=== PATIENT | male | born 1990 | race Caucasian/White ===

== ENCOUNTER 2023-06-11 12:15 | Emergency (ER) | payer SELFPAY ==
--- OUTSIDE RECORDS SUMMARY | 2023-06-11 12:18 | XMS REPORT | Continuity of Care Document ---
:1990 Author Organization [facility] t Address [address] [facility] [address] [place] [address] Care Team Providers Name Role Phone FRANCISCA TUBBS Primary Care Physician Unavailable Amanda Matta Attending Clinician AMANDA JETT Attending Clinician Unavailable Doctor Unassigned, [place] Attending Clinician Unavailable Stephanie Lowe MD Attending Clinician RICH GARZA Attending Clinician Unavailable STEPHANIE LOWE Attending Clinician Unavailable LORY LEGER Attending Clinician Unavailable SESAR HAYNES Attending Clinician Unavailable , Adc Surg Spec Procedure Attending Clinician Unavailable Francisca Gtz Attending Clinician FRANCISCA TUBBS Attending Clinician Unavailable Sesar Haynes MD Attending Clinician [phone] Lab, Dain Cbc Attending Clinician Unavailable Jaquelin Moreno Attending Clinician JAQUELIN OLEARY Attending Clinician Unavailable Arden Chavez MD Attending Clinician ARDEN CHAVEZ Attending Clinician Unavailable Jolene Dodd Attending Clinician JOLENE SIDDIQI Attending Clinician Unavailable Greg Mason Attending Clinician GREG LUONG Attending Clinician Unavailable Liam Mattson MD Attending Clinician LIAM MATTSON Attending Clinician Unavailable JULIO C CALDERON Attending Clinician Unavailable Domenic Land Attending Clinician Unavailable LIAM MATTSON Admitting Clinician Unavailable JULIO C CALDERON Admitting Clinician Unavailable Payers Payer Name Policy Type Policy Number Effective Date Expiration Date Piotr HENNING BCCURRY BLUE [id number] 2020 ADVANTAGE O 00:00:00 Problems Condition Condition Condition Status Onset Resolution Last Treating Co mments Source Name Details Category Date Date Treatment Clinician Date Injury by Injury by Disease Active Uni vers nail, nail, 5-17 ity of initial initial 00:00: [place] encounter encounter 00 Medi tammy Branch Left foot Left foot Disease Active Uni vers pain pain 5-17 ity of 00:00: [place] 00 Medical Branch Allergies, Adverse Reactions, Alerts Allergy Allergy Status Severity Reaction(s) Onset Inactive Treating Comm ents Source Name Type Date Date Clinician No Known DA Active [facility] 05[facility]30 [facility] NO KNOWN Drug Active Univers ALLERGIE Class ity of S [facility] Social History Social Habit Start Date Stop Date Quantity Comments Source History [facility] University o f Alcohol Frequency [facility] Branch History [facility] University o f Alcohol Std Drinks [facility] History [facility] University o f Alcohol Binge [facility] Branch Exposure to 2022-03-31 2022-04-10 Not sure University SARS-CoV-2 (event) 00:00:00 09:19:00 [facility] Alcohol intake 2022-04-10 2022-04-10 Current drinker Unive rsity of 00:00:00 00:00:00 of alcohol [facility] [place] (finding) Branch Cigarettes smoked 2021-08-23 2021-08-23 Univers ity of current (pack per 00:00:00 00:00:00 [facility]) - Reported Branch Tobacco use and 2021-08-23 2021-08-23 Never used Universit y of exposure 00:00:00 00:00:00 [facility] Cigarette 2021-08-23 2021-08-23 University of pack-years 00:00:00 00:00:00 [facility] History of tobacco 2021-08-02 Cigarette Smoker University of use 00:00:00 [facility] Alcohol Comment 2018-04-07 2018-04-07 social Universit y of 00:00:00 00:00:00 [facility] Sex [birth year] At [birth year] Universit y of 00:00:00 00:00:00 [facility] Smoking Status Start Date Stop Date Source Former smoker 2021-08-23 00:00:00 2021-08-23 [facility] Medications Ordered Filled Start Stop Current Ordering Indication Dosage Frequency Signature Comments Components Source Medication Medication Date Date Medication? Clinician (SIG) Name Name ibuprofen 2021- No [id number] 600mg Take 1 Univers 600 mg 04-10 9107 tablet by ity of tablet 00:00: 04:59 mouth [place] 00 :00 every 6 Medical (six) Branch hours as needed for Temp > 38.5 C for up to 14 days. ibuprofen 2021- No [id number] 600mg Take 1 Univers 600 mg 04-10 9107 tablet by ity of tablet 00:00: 04:59 mouth [place] 00 :00 every 6 Medical (six) Branch hours as needed for Temp > 38.5 C for up to 14 days. benzonatate Yes [id number] 100mg Take 1 Univers (TESSALON 9- 07 capsule by ity of PERLES) 100 00:00: mouth 3 Dain as mg capsule 00 (three) Medica l times Branch daily as needed for Cough. benzonatate Yes [id number] 100mg Take 1 Univers (TESSALON 9-29 07 capsule by ity of PERLES) 100 00:00: mouth 3 Dain as mg capsule 00 (three) Medica l times Branch daily as needed for Cough. Immunizations Ordered Filled Immunization Date Status Comments Sourc e Immunization Name Name TDAP 2020-10-07 Completed University 00:00:00 [facility] TDAP 2020-10-07 Completed University 00:00:00 [facility] Vital Signs Vital Name Observation Time Observation Value Comments Source Systolic blood 2022-04-10 14:36:00 123 mm[Hg] Univer sity of pressure [facility] Diastolic blood 2022-04-10 14:36:00 78 mm[Hg] Unive rsity of pressure [facility] Heart rate 2022-04-10 14:36:00 84 /min [facility] Body temperature 2022-04-10 14:36:00 36.39 Michaela Univ ersity [facility] Body height 2022-04-10 14:36:[address] [facility] Body weight 2022-04-10 14:36:[address] [facility] BMI 2022-04-10 14:36:00 23.73 kg/m2 [facility] Oxygen saturation in 2022-04-10 14:36:00 98 /min [facility] Arterial blood by [facility] Pulse oximetry Branch Procedures This patient has no known procedures. Encounters Start End Encounter Admission Attending Care Care Encounter Source Date/Time Date/Time Type Type Clinicians Facility Department ID 2022-08-23 Outpatient CHW CHW [id number] [facility] 13:19:32 21 [facility] 2022-04-10 2022-04-10 Office Janett [facility] 1.2.840.114 [id number] Univers 09:00:00 09:54:24 Visit Amanad OSBORN 350.1.13.10 it y of [place] 4.2.7.2.686 Dain as DAVID?BLEA [phone] [address] MEDICAL OFFICE BUILDING 2022-04-10 2022-04-10 Outpatient Jenny JETT [facility] [id number] Univers 09:00:00 09:54:24 AMANDA proctor [facility] 2022-04-10 2022-04-10 Outpatient Jenny JETT [facility] [id number] Univers 00:00:00 00:00:00 AMANDA proctor [facility] 2022-04-10 2022-04-10 Orders Doctor MALHOTRA 1.2.840.114 [id number] Univers 00:00:00 00:00:00 Only Unassigned, MAITE 350.1.13.10 ity of [place] [facility] 4.2.7.2.686 Dain as [phone] [address] 2022-04-09 2022-04-09 Letter JanettRUST 1.2.840.114 [id number] Univers 00:00:00 00:00:00 (Out) Amanda HEALTH 350.1.13.10 it y of [place] 4.2.7.2.686 Dain as DAVID?BLEA [phone] Id dical [address] MEDICAL OFFICE BUILDING 2021-12-15 2021-12-15 Orders Doctor ROSCOE 1.2.840.114 [id number] Univers 00:00:00 00:00:00 Only Unassigned, [place]ITE 350.1.13.10 ity of [place] [facility] 4.2.7.2.686 Dain as [id number] [address] 2021-12-12 2021-12-12 Telephone [facility] 1.2.840.114 [id number] Univers 00:00:00 00:00:00 [facility] 350.1.13.10 [place] PROF[place] [phone] [facility] 204 [facility] 2021-12-07 2021-12-07 Patient [facility] 1.2.840.114 [id number] Univers 00:00:00 00:00:00 Secure Msg Stephanie HEALTH 350.1.13.10 ity of [place]2.7.2.686 [place] [facility] [phone] Med ical [address] 2021-09-14 2021-09-14 Outpatient R GREG [facility] [id number] Univers 18:00:00 18:00:00 RICH ity of [facility] 2021-09-14 2021-09-14 Telephone [facility] 1.2.840.114 [id number] Univers 00:00:00 00:00:00 Stephanie [place] 350.1.13.10 i ty [place] [phone] [facility] 204 [facility] 2021-09-11 2021-09-11 [facility] [id number] Univers 11:30:00 11:30:00 STEPHANIE [facility] 2021-09-11 2021-09-11 Office MynorRUST 1.2.840.114 [id number] Univers 10:31:19 11:03:41 Visit [facility] 350.1.13.10 i ty [place] Profess[place] [phone] [address] 2021-09-11 2021-09-11 Outpatient R ARSEN [facility] [id number] Univers 09:30:00 09:30:00 LORY [facility] 2021-09-11 2021-09-11 [facility] 1.2.840.114 [id number] Univers 00:00:00 00:00:00 Secure Msg [facility] 350.1.13.10 ity [place].2.686 [place] - [phone] Med ical [address] 2021-09-08 2021-09-08 Outpatient R ISRAEL [facility] [id number] Univers 10:40:00 10:40:00 ON, [facility] 2021-09-07 2021-09-07 Office MynorRUST 1.2.840.114 [id number] Univers 09:29:28 09:54:55 Visit [facility] 350.1.13.10 i ty [place]2.[place] Profess[place] [phone] [address] 2021-09-07 2021-09-07 Out[facility] [id number] Univers 08:00:00 08:00:00 [facility] [place] [facility] 2021-09-06 2021-09-06 Telephone MynorRUST 1.2.840.114 [id number] Univers 00:00:00 00:00:00 [facility] 350.1.13.10 i [place]2.[place] [phone] [facility] 204 [facility] 2021-09-04 2021-09-04 [facility] 1.2.840.114 [id number] Univers 15:00:23 17:06:06 Visit Rm, Adc Surg Spec Procedure [place] 3 50.1.13.10 it[place]2.[place].2.[place] [id number] [address] 2021-09-04 2021-09-04 [facility] [id number] Univers 15:30:00 15:30:00 STEPHANIE ity [facility] 2021-09-04 2021-09-04 Telephone [facility] 1.2.840.114 [id number] Univers 00:00:00 00:00:00 [facility] 350.1.13.10 i ty [place]2.[place] [phone] [address] 2021-09-04 2021-09-04 Orders Doctor ROSCOE 1.2.840.114 [id number] Univers 00:00:00 00:00:00 Only Unassigned, [place] 350.1.13.10 ity of [place] [facility] 4.2.7.2.686 Dain as [phone] [address] 2021-09-04 2021-09-04 Telephone [facility] 1.2.840.114 [id number] Univers 00:00:00 00:00:00 [facility] 350.1.13.10 i ty [place]2.[place] [phone] Id dic[address] 2021-08-23 2021-08-23 Office SulyRUST 1.2.840.114 [id number] Univers 07:09:45 07:39:28 Visit Francisca Lupe [facility] 350.1.13.10 i ty of [place] 4.2.7.2.686 Dain as David?Blea [phone] [address] 2021-08-23 2021-08-23 Outpatient [facility] [id number] Univers 07:00:00 07:00:00 FRANCISCA itflorentin [facility] 2021-07-28 2021-07-28 [facility] [id number] Univers 09:00:00 09:00:00 ON, SESAR itflorentin [facility] 2021-07-27 2021-07-27 Patient [facility] 1.2.840.114 [id number] Univers 00:00:00 00:00:00 Secure Msg on, Sesar Mora HEALTH 350.1.13.10 ity [facility] 4.2.7.2.686 [facility] [phone] [facility] Primary & 365 Branch Specialty Care 2021-07-17 2021-07-17 Outpatient [facility] [id number] Univers 16:15:00 16:15:00 [facility] 2021-07-13 2021-07-13 [facility] 1.2.840.114 [id number] Univers 00:00:00 00:00:00 on, Sesar HEALTH 350.1.13.10 ity [facility] 4.2.7.2.686 [facility] [phone] [facility] Primary & 365 Branch Specialty Care 2020-12-29 2020-12-29 Outpatient R [facility] [id number] Univers 15:30:00 15:30:00 [facility] 2020-11-24 2020-11-24 Office [facility] 1.2.840.114 [id number] Univers 15:58:15 16:42:03 Visit Stephanie Malagon 350.1.13.10 i ty gigi Gil 4.2.7.2.686 [facility] [phone] [address] 2020-11-24 2020-11-24 Outpatient R [facility] [id number] Univers 16:00:00 16:00:00 [facility]IE [facility] 2020-11-24 2020-11-24 Orders Doctor MALHOTRA 1.2.840.114 [id number] Univers 00:00:00 00:00:00 Only Unassigned, [place] 350.1.13.10 ity of [place] [facility] 4.2.7.2.686 Dain as [phone] [facility] 009 Branch 2020-11-09 2020-11-09 Fraud Prevention Analyst Lab, [facility] 1.2.840.11 [id number] Univers 08:47:43 09:02:43 Visit Regina Olearye [facility] 350.1.13.1 0 ity of [place] 4.2.7.2.686 [facility] [phone] [facility] Primary & 357 Branch Specialty Care 2020-11-09 2020-11-09 Outpatient R MAMTA [facility] [id number] Univers 08:45:00 08:45:00 JAQUELIN itflorentin [facility] 2020-11-04 2020-11-04 [facility] 1.2.840.114 [id number] Univers 16:15:00 23:59:00 Encounter Arden A SPECIALTY 350.1.13.10 ity of CARE 4.2.7.2.686 [facility] s CENTER AT [phone] Id vinhlopez WHITT 809 [facility] 2020-11-04 2020-11-04 Office [facility] 1.2.840.114 [id number] Univers 15:30:35 17:04:25 Visit Arden A SPECIALTY 350.1.13.10 ity of CARE 4.2.7.2.686 [facility] s CENTER AT [phone] Id vnihlopez OCAMPOFlorentin 198 [facility] 2020-11-04 2020-11-04 Outpatient R [facility] [id number] Univers 15:30:00 15:30:00 [facility]DEN [facility] 2020-11-03 2020-11-03 Telephone MamtaRUST 1.2.840.114 [id number] Univers 00:00:00 00:00:00 Jaquelin N Moonfrye 350.1.13.10 ity of [place] 4.2.7.2.686 [facility] [phone] [facility] Primary & 204 Branch Specialty Care 2020-10-31 2020-10-31 Patient Israel [facility] 1.2.840.114 [id number] Univers 00:00:00 00:00:00 Secure Msg on, Sesar Mora HEALTH 350.1.13.10 ity of [place] 4.2.7.2.686 [facility] [phone] [facility] Primary & 231 Branch Specialty Care 2020-10-27 2020-10-27 Fraud Prevention Analyst Lab, [facility] 1.2.840.11 [id number] Univers 11:19:01 11:34:01 Visit Dillon Jolene HEALTH 350.1.13.10 ity of [place] 4.2.7.2.686 [facility] [phone] [facility] Primary & 357 Branch Specialty Care 2020-10-27 2020-10-27 Office Dillon [facility] 1.2.840.114 [id number] Univers 10:12:01 11:17:34 [facility] 350.1.13.10 it y of [place] 4.2.7.2.[address] [place] [address] [phone] [facility] Primary & 204 Branch Specialty Care 2020-10-27 2020-10-27 Outpatient Jenny SIDDIQI [facility] [id number] Univers 10:30:00 10:30:00 JOLENE ity [facility] 2020-10-27 2020-10-27 Outpatient Jenny SIDDIQI [facility] [id number] Univers 08:30:00 08:30:00 [facility] 2020-10-27 2020-10-27 Orders Doctor MALHOTRA 1.2.840.114 [id number] Univers 00:00:00 00:00:00 Only Unassigned, MAITE 350.1.13.10 ity of [place] [facility] 4.2.7.2.686 [facility] [phone] [facility] 009 Branch 2020-10-19 2020-10-19 Office Ag [facility] 1.2.840.114 [id number] Univers 15:37:21 16:07:21 Visit Greg Helm HEALTH 350.1.13.10 ity of [place] 4.2.7.[address] [place] [address] [phone] [facility] Primary & 204 Branch Specialty Care 2020-10-19 2020-10-19 Outpatient R AG [facility] [id number] Univers 16:00:00 16:00:00 GREG ity of [place] Medical Branch 2020-10-10 2020-10-10 Patient Doctor [facility] 1.2.840.114 [id number] Univers 00:00:00 00:00:00 Secure Msg Unassigned, HEALTH 350.1.13.10 ity of [place] 4.2.7.2.686 [facility] [phone] Medi tammy Primary & 231 Branch Specialty Care 2020-10-10 2020-10-10 Patient Doctor [facility] 1.2.840.114 [id number] Univers 00:00:00 00:00:00 Secure Msg Unassigned, HEALTH 350.1.13.10 ity of [place] 4.2.7.2.686 [facility] [phone] Medi tammy Primary & 231 Branch Specialty Care 2020-10-07 2020-10-07 Hospital [facility] 1.2.840.114 [id number] Univers 10:15:00 23:59:00 Encounter onSesar HEALTH 350.1.13.10 ity of [place] 4.2.7.2.686 [facility] [phone] Medi tammy Primary & 809 Branch Specialty Care 2020-10-07 2020-10-07 Fraud Prevention Analyst Lab, [facility] 1.2.840.11 [id number] Univers 10:47:02 11:02:02 Visit Sesar Haynes HEALTH 350.1.1 3.10 ity of [place] 4.2.7.[address] [place] [address] [phone] Medi tammy Primary & 357 Branch Specialty Care 2020-10-07 2020-10-07 Office [facility] 1.2.840.114 [id number] Univers 09:32:35 10:32:56 Visit oneSsar HEALTH 350.1.13.10 ity of [place] 4.2.7.2.686 [facility] [phone] Medi tammy Primary & 231 Branch Specialty Care 2020-10-07 2020-10-07 [id number] Univers 09:20:00 09:20:00 ON, SESAR proctor [facility] 2020-10-07 2020-10-07 Telephone Israel [facility] 1.2.840.114 [id number] Univers 00:00:00 00:00:00 on, Sesar Mora HEALTH 350.1.13.10 ity of [place] 4.2.7.2.686 [facility] [phone] [facility] Branch Specialty Care 2020-10-07 2020-10-07 Patient Israel [facility] 1.2.840.114 [id number] Univers 00:00:00 00:00:00 Secure Msg on, Sesar Mora HEALTH 350.1.13.10 ity of [place] 4.2.7.2.686 [facility] [phone] [facility] Branch Specialty Care 2020-10-07 2020-10-07 Patient Israel [facility] 1.2.840.114 [id number] Univers 00:00:00 00:00:00 Secure Msg on, Sesar Mora HEALTH 350.1.13.10 ity of [place] 4.2.7.2.686 [facility] [phone] [facility] Branch Specialty Care 2020-05-07 2020-05-07 Emergency Srinivasan, [facility] 1.2.840.114 [id number] Univers 06:06:03 08:24:00 [facility] 350.1.13.10 it [facility] 4.2.7.2.686 [facility] [phone] [address] ([facility]) 2020-05-07 2020-05-07 Emergency X SRINIVASAN [facility] ERT [id number] Univers 06:06:03 08:24:00 LIAM proctor [facility] 2019-10-25 2019-10-25 Emergency X KVNG [facility] ERT [id number] Univers 16:00:57 17:48:00 JULIO C proctor [facility] 2019-06-30 2019-06-30 Outpatient PEDRO Escalona CHW [id number] [facility] 16:00:00 16:00:00 [facility] 2019-04-22 2019-04-22 Outpatient PEDRO Land [id number] [facility] 16:00:00 16:00:00 [facility] s Results This patient has no known results.
--- NOTE | 2023-06-11 13:13 | RAD REPORT ---
EXAM DESCRIPTION: RAD - Foot Left 3 View - 06/11/2023 1:02 pm CLINICAL HISTORY: stepped on glass, laceration;Pain COMPARISON: <Comparisons> FINDINGS: Soft tissue swelling is seen along the plantar aspect of the foot. No fracture or dislocat ion seen. Moderate swelling is seen along the medial aspect of the interphalangeal joint. No soft tis wesley gas. No radiopaque foreign body visible. Please note that sometimes non-metal foreign bodies are not visible on x-ray.
--- NOTE | 2023-06-11 13:33 | EDPHYS ---
Physician Documentation [facility] Name: Judd Barraza Age: 32 yrs Sex: Male : 1990 Arrival Date: 06/11/2023 Time: 12:15 Bed 6 Private MD: ED Physician Will Velazquez HPI: 06/11 13:28 This 32 yrs old Male presents to ER via Ambulatory with complaints of Laceration To rn Foot, Puncture Wound To Foot. 13:28 The patient has a laceration occurred outdoors, and has glass or an other foreign body rn present. The type of wound is a puncture. The laceration(s) is(are) located on the left foot. Onset: The symptoms/episode began/occurred 3 day(s) ago. The patient has not experienced similar symptoms in the past. The patient has not recently seen a physician. Pt reports barefoot, stepped on broken glass 2-3 days ago, took glass out, doesn't feel like any foreign bodies still left, but noticed increased swelling. He superglued the wound shut. Also reports years ago stepped on nail on ball of foot, still feels swollen from that. Tetanus up to date, last shot 2 years ago.. Historical: - Allergies: 12:40 No Known Allergies; aa5 - PMHx: 12:40 Seizure; CVA; aa5 - PSHx: 12:40 open heart sx; aa5 - Social history:: Smoking status: Patient reports the use of cigarette tobacco products. - Family history:: not pertinent. - Hospitalizations: : No recent hospitalization is reported. ROS: 13:28 Constitutional: Negative for fever, chills, and weight loss, MS/Extremity: + laceration rn to left foot Exam: 13:28 Constitutional: This is a well developed, well nourished patient who is awake, alert, rn and in no acute distress. MS/ Extremity: Pulses equal, no cyanosis. Neurovascular intact. Full, normal range of motion. Equal circumference. + superficial laceration plantar surface of left mid-foot, no foreign bodies identified or focal swelling. Distal left foot with sign of old puncture wound with nodularity, non-tender, no drainage. No purulence from newer wound or foul smell. Vital Signs: 12:38 BP 135 / 89; Pulse 95; Resp 18 S; Temp 97.5(TE); Pulse Ox 99% on R/A; aa5 13:28 BP 141 / 91; Pulse 80; Resp 18 S; Pulse Ox 100% on R/A; Pain 3/10; kc6 13:28 Pain Scale: Adult kc6 MDM: 12:38 Patient medically screened. rn 13:28 Differential diagnosis: superficial laceration. Data reviewed: vital signs, nurses rn notes, and as a result, I will discharge patient. Counseling: I had a detailed discussion with the patient and/or guardian regarding: the historical points, exam findings, and any diagnostic results supporting the discharge/admit diagnosis, radiology results, the need for outpatient follow up, to return to the emergency department if symptoms worsen or persist or if there are any questions or concerns that arise at home. Special discussion: I discussed with the patient/guardian in detail that at this point there is no indication for admission to the hospital. It is understood, however, that if the symptoms persist or worsen the patient needs to return immediately for re-evaluation. 13:28 Special discussion: Based on the history and exam findings, there is no indication for rn further emergent testing or inpatient evaluation. I discussed with the patient/guardian the need to see the skin specialist for further evaluation of the symptoms. 06/11 12:45 Order name: XRAY Foot LEFT 3 View; Complete Time: 13:25 rn Administered Medications: No medications were administered Disposition Summary: 06/11/23 13:33 Discharge Ordered Location: Home rn Problem: new rn Symptoms: have improved rn Condition: Stable rn Diagnosis - Laceration without foreign body, left foot rn Followup: rn - With: Private Physician - When: As needed - Reason: Recheck today's complaints, Re-evaluation by your physician Discharge Instructions: - Discharge Summary Sheet rn - Puncture Wound rn Forms: - Medication Reconciliation Form rn - Thank You Letter rn - Antibiotic media relations intern - Prescription Opioid Use rn - Patient Portal Instructions rn - Work release form eh3 Prescriptions: - Clindamycin HCl 300 mg Oral Capsule - take 1 capsule by ORAL route every 6 hours for 10 days; 40 capsule; Refills: 0, rn Product Selection Permitted - Tramadol 50 mg Oral Tablet - take 1 tablet by ORAL route every 8 hours as needed; 12 tablet; Refills: 0, rn Product Selection Permitted Signatures: Dispatcher [employer] Will Lynn MD MD rn Calderon, Ese, APPLE RN aa5
--- NOTE | 2023-06-11 13:33 | ER ---
Nurse's Notes [facility] Name: uJdd Barraza Age: 32 yrs Sex: Male : 1990 Arrival Date: 06/11/2023 Time: 12:15 Bed 6 Private MD: Diagnosis: Laceration without foreign body, left foot Presentation: 06/11 12:38 Chief complaint: Patient states: "I stepped on some glass on Saturday and I super glued aa5 the cut but it still hurts". pt states "I also stepped on a nail about 6 months ago and there is still a hole on my foot and it hurts". Coronavirus screen: At this time, the client does not indicate any symptoms associated with coronavirus-19. Ebola Screen: Patient denies travel to an Ebola-affected area in the 21 days before illness onset. Complicating Factors: stepped on glass. Initial Sepsis Screen: Does the patient meet any 2 criteria? HR > 90 bpm. Does the patient have a suspected source of infection? No. Patient's initial sepsis screen is negative. Risk Assessment: Do you want to hurt yourself or someone else? Patient reports no desire to harm self or others. 12:38 Acuity: JOHNATHAN 4 aa5 12:38 Method Of Arrival: Ambulatory aa5 12:38 Onset of symptoms was May 2023. aa5 Historical: - Allergies: 12:40 No Known Allergies; aa5 - PMHx: 12:40 Seizure; CVA; aa5 - PSHx: 12:40 open heart sx; aa5 - Social history:: Smoking status: Patient reports the use of cigarette tobacco products. - Family history:: not pertinent. - Hospitalizations: : No recent hospitalization is reported. Screenin:26 [facility] ED Fall Risk Assessment (Adult) History of falling in the last 3 months, kc6 including since admission No falls in past 3 months (0 pts) Confusion or Disorientation No (0 pts) Intoxicated or Sedated No (0 pts) Impaired Gait No (0 pts) Mobility Assist Device Used No (0 pt) Altered Elimination No (0 pt) Score/Fall Risk Level 0 - 2 = Low Risk Oriented to surroundings, Maintained a safe environment, Educated pt \\T\\ family on fall prevention, incl call for assistance when getting out of bed, Assessed \\T\\ reinforced patient's understanding of fall precautions, Hourly rounding (assess needs \\T\\ fall precautionary measures) done. Abuse screen: Denies threats or abuse. Denies injuries from another. Nutritional screening: No deficits noted. Tuberculosis screening: No symptoms or risk factors identified. Assessment: 13:27 General: Appears in no apparent distress. comfortable, Behavior is calm, cooperative, kc6 appropriate for age. Pain: Complains of pain in left foot Pain does not radiate. Pain currently is 3 out of 10 on a pain scale. at worst was 8 out of 10 on a pain scale. Neuro: Level of Consciousness is awake, alert, obeys commands, Oriented to person, place, time, situation, Appropriate for age. Cardiovascular: Capillary refill < 3 seconds. Respiratory: Airway is patent Trachea midline Respiratory effort is even, unlabored, Respiratory pattern is regular, symmetrical. GI: No signs and/or symptoms were reported involving the gastrointestinal system. : No signs and/or symptoms were reported regarding the genitourinary system. EENT: No signs and/or symptoms were reported regarding the EENT system. Derm: Skin is pink, warm \\T\\ dry. Musculoskeletal: No signs and/or symptoms reported regarding the musculoskeletal system. Circulation, motion, and sensation intact. Capillary refill < 3 seconds, Range of motion: intact in all extremities. Injury Description: Laceration sustained to ball of left foot and arch of left foot is clean, superficial, not bleeding. Vital Signs: 12:38 BP 135 / 89; Pulse 95; Resp 18 S; Temp 97.5(TE); Pulse Ox 99% on R/A; aa5 13:28 BP 141 / 91; Pulse 80; Resp 18 S; Pulse Ox 100% on R/A; Pain 3/10; kc6 13:28 Pain Scale: Adult kc6 ED Course: 12:18 Patient arrived in ED. am2 12:38 Will Velazquez MD is Attending Physician. rn 12:38 Arm band placed on. aa5 12:39 Triage completed. aa5 13:03 XRAY Foot LEFT 3 View In Process Unspecified. EDMS 13:26 Lori Corbin, APPLE is Primary Nurse. kc6 13:27 Patient has correct armband on for positive identification. Bed in low position. Call kc6 light in reach. Side rails up X 1. 13:50 No provider procedures requiring assistance completed. Patient did not have IV access kc6 during this emergency room visit. Administered Medications: No medications were administered Medication: 13:51 VIS not applicable for this client. kc6 Outcome: 13:33 Discharge ordered by . rn 13:51 Discharged to home ambulatory. kc6 13:51 Condition: improved 13:51 Discharge instructions given to patient, Instructed on discharge instructions, follow up and referral plans. medication usage, wound care, Demonstrated understanding of instructions, follow-up care, medications, wound care. 13:51 Patient left the ED. kc6 Signatures: Dispatcher [employer] EDMS Will Velazquez MD MD rn Calderon, Audri RN RN [email or web address] [employer] Kaitlyn RN RN kc6
[2023-06-11 14:46] VITALS: TEMP 97.5
[2023-06-11 14:48] VITALS: BP 141/91; O2SAT 100
== END 2023-06-11 13:51 | disposition home or self-care (01) ==
LOC: ER 12:15
DX: S91.312A Laceration without foreign body, left foot, initial encounter (principal); Z72.0 Tobacco use
CPT/HCPCS: 99283

== ENCOUNTER → 2023-12-27 | Emergency (ER) | payer SELFPAY ==
[~2023-12-27] MED LIST: LIDOCAINE 1% 20 ML MDV ONE
--- OUTSIDE RECORDS SUMMARY | 2023-12-27 15:17 | XMS REPORT | Continuity of Care Document ---
Author Name Unknown Address [address] [facility] [address]. [address] [place] [address] [facility] thconnect Address [address] [facility]. [address] [place] [address] Care Team Providers Care Director Decision Support Name Role Phone Sesar Haynes MD Primary Care Physician Unavailable Amanda Matta Attending Clinician [phone] AMANDA ROWLAND Attending Clinician Unavailable Doctor Unassigned, [place] Attending Clinician U Stephanie Washington MD Attending Clinician [phone] RICH GARZA Attending Clinician Unavailable STEPHANIE LOWE Attending Clinician Unavailable LORY LEGER Attending Clinician Unavailable SESAR HAYNES Attending Clinician Marisa alberts , Adc Surg Spec Procedure Attending Clinician Unavailable Francisca Gtz Attending Clinician [phone] FRANCISCA TUBBS Attending Clinician Unavailable Sesar Haynes MD Attending Clinician [phone] Lab, Dain Cbc Attending Clinician Unavailable Jaquelin Moreno Attending Clinician JAQUELIN OLEARY Attending Clinician UnavailArden Smith MD Attending Clinician [phone] ARDEN CHAVEZ Attending Clinician Unavailable Jolene Dodd Attending Clinician [phone] JOLENE CARRANZA Attending Clinician UnavailGreg Persaud Attending Clinician [phone] GREG LUONG Attending Clinician Unavail able Liam Mattson MD Attending Clinician LIAM MATTSON Attending Clinician Unavailable JULIO C CALDERON Attending Clinician Unavailab Domenic Marte Attending Clinician Unavailable LIAM MATTSON Admitting Clinician Unavailable JULIO C CALDERON Admitting Clinician Unavailab isbell Payers Payer Name Policy Type Policy Number Effective Date Expirati on Date Source [facility] [id number] 2020 00:00:00 Problems Condition Name Condition Details Condition Category Status Onset Date Resolution Date Last Treatment Date Treating Clinician Comments Source Injury by nail, initial encounter Injury by nail, initial encounter Disease Active 04-10 00:00: 00 [facility] Left foot pain Left foot pain Disease Active 04-10 00:00: 00 [facility] Allergies, Adverse Reactions, Alerts Allergy Name Allergy Type Status Severity Reaction(s) Onset Date Inactive Date Treating Clinician Comments Source No Known Allergie s DA Active U 05-30 00:00: 00 [facility] NO KNOWN ALLERGIE S Drug Class Active [facility] Social History Social Habit Start Date Stop Date Quantity Comments Source History SDOH Alcohol Frequency [facility] History SDOH Alcohol Std Drinks [facility] History SDOH Alcohol Binge [facility] to SARS-CoV-2 (event) 2022-03-31 00:00:00 2022-04-10 09:19:00 Not sure [facility] Cigarette pack-years 2021-08-23 00:00:00 2021-08-23 00:00:00 [facility] History of Social function 2021-08-23 00:00:00 2021-08-23 00:00:00 [facility] History of tobacco use 2021-08-02 00:00:00 Cigarette Smoker [facility] Alcohol intake 2020-11-04 00:00:00 2020-11-04 00:00:00 Current drinker of alcohol (finding) [facility] Cigarettes smoked current (pack per day) - Reported 2018-04-07 00:00:00 2018-04-07 00:00:00 [facility] Tobacco use and exposure 2018-04-07 00:00:00 2018-04-07 00:00:00 Smokeless tobacco non-user [facility] Alcohol Comment 2018-04-07 00:00:00 2018-04-07 00:00:00 social [facility] Sex Assigned At 1990 00:00:00 1990 00:00:00 [facility] Smoking Status Start Date Stop Date Source Ex-smoker 2021-08-23 00:00:00 2021[facility] daily 2018-04-07 00:00:00 [facility] Medications Ordered Medication Name Filled Medication Name Start Date Stop Date Current Medication? Ordering Clinician Indication Dosage Frequency Signature (SIG) Comments Components Source ibuprofen 600 mg tablet 04-10 00:00: 00 04-25 04:59 :00 No [id number] 600mg Take 1 tablet by mouth every 6 (six) hours as needed for Temp > 38.5 C for up to 14 days. [facility] ibuprofen 600 mg tablet 04-10 00:00: 00 04-25 04:59 :00 No [id number] 9107 600mg Take 1 tablet by mouth every 6 (six) hours as needed for Temp > 38.5 C for up to 14 days. [facility] benzonatate (TESSALON PERLES) 100 mg capsule 08-23 00:00: 00 Yes [id number] 100mg Take 1 capsule by mouth 3 (three) times daily as needed for Cough. [facility] benzonatate (TESSALON PERLES) 100 mg capsule 08-23 00:00: 00 Yes [id number] 100mg Take 1 capsule by mouth 3 (three) times daily as needed for Cough. [facility] benzonatate (TESSALON PERLES) 100 mg capsule 08-23 00:00: 00 Yes [id number] 07 100mg Take 1 capsule by mouth 3 (three) times daily as needed for Cough. [facility] acetaminoph en-codeine (TYLENOL-CO DEINE #3) 300-30 mg tablet 2018-11 00:00: 00 08-23 00:00 :00 No [id number] 1{tbl} Take 1 tablet by mouth every 4 (four) hours as needed for Pain (scale 1-3). [facility] Immunizations Ordered Immunization Name Filled Immunization Name Date Status Comments Source TDAP 2020-10-07 00:00:00 Completed [facility] TDAP 2020-10-07 00:00:00 Completed [facility] TDAP Unknown Completed [facility] TDAP Unknown Completed [facility] Vital Signs Vital Name Observation Time Observation Value Comments S ource Systolic blood pressure 2022-04-10 14:36:00 123 mm[Hg] [facility] Diastolic blood pressure 2022-04-10 14:36:00 78 mm[Hg] [facility] Heart rate 2022-04-10 14:36:00 84 /min [facility] Body temperature 2022-04-10 14:36:00 36.39 Michaela [facility] Body height 2022-04-10 14:36:00 185.4 cm [facility] Body weight 2022-04-10 14:36:00 81.602 kg [facility] BMI 2022-04-10 14:36:00 23.73 kg/m2 [facility] Oxygen saturation in Arterial blood by Pulse oximetry 2022-04-10 14:36:00 98 /min [facility] Encounters Start Date/Time End Date/Time Encounter Type Admission Type Attending Clinicians Care Facility Care Department Encounter ID Source 2022-08-23 13:19:32 Outpatient CHW CHW [id number] [facility] 2022-04-10 09:00:00 2022-04-10 09:54:24 Office Visit Amanda Rowland [facility] 1.2.840.114 350.1.13.10 4.2.7.2.686 [id number] [facility] 2022-04-10 09:00:00 2022-04-10 09:54:24 Outpatient R AMANDA ROWLAND [facility] [id number] [facility] 2022-04-10 00:00:00 2022-04-10 00:00:00 Outpatient R AMANDA ROWLAND [facility] [id number] [facility] 2022-04-10 00:00:00 2022-04-10 00:00:00 Orders Only Doctor Unassigned, [place] [facility] 1.2840.114 350.1.13.10 4.2.7.2.686 [id number] [facility] 2022-04-09 00:00:00 2022-04-09 00:00:00 [facility] ([facility] 1.2840.114 350.1.13.10 4.2.7.2.686 [id number] [facility] 2021-12-15 00:00:00 2021-12-15 00:00:00 Orders Only Doctor Unassigned, [place] [facility] 1.2840.114 350.1.13.10 4.2.7.2.686 [id number] [facility] 2021-12-12 00:00:00 2021-12-12 00:00:00 Telephone Stephanie Lowe [facility] 1.2840.114 350.1.13.10 4.2.7.2.686 [id number] [facility] 2021-12-07 00:00:00 2021-12-07 00:00:00 [facility] 1.2840.114 350.1.13.10 4.2.7.2.686 [id number] [facility] 2021-09-14 18:00:00 2021-09-14 18:00:00 Outpatient R RICH GARZA [facility] [id number] [facility] 2021-09-14 00:00:00 2021-09-14 00:00[facility] 1.2.840.114 350.1.13.10 4.2.7.2.686 [id number] [facility] 2021-09-11 11:30:00 2021-09-11 11:30:00 [id number] 2021-09-11 10:31:19 2021-09-11 11:03:41 Office Visit Hafsa [facility] 1.2.840.114 350.1.13.10 4.2.7.2.686 [id number] [facility] 2021-09-11 09:30:00 2021-09-11 09:30:00 Outpatient LORY JO [facility] [id number] [facility] 2021-09-11 00:00:00 2021-09-11 00:00:00 Patient Secure Idg [facility] 1.2840.114 350.1.13.10 4.2.7.2.686 [id number] [facility] 2021-09-11 00:00:00 2021-09-11 00:00:00 [facility] 1.2840.114 350.1.13.10 4.2.7.2.686 [id number] [facility] 2021-09-08 10:40:00 2021-09-08 10:40:00 Outpatient R ISRAEL BRANDTSESAR [facility] [id number] [facility] 2021-09-07 09:29:28 2021-09-07 09:54:55 Office Visit Stephanie Lowe [facility] 1.2.840.114 350.1.13.10 4.2.7.2.686 [id number] [facility] 2021-09-07 08:00:00 2021-09-07 08:00:00 [id number] 2021-09-06 00:00:00 2021-09-06 00:00:00 [facility] 1.2.840.114 350.1.13.10 4.2.7.2.686 [id number] [facility] 2021-09-04 15:00:23 2021-09-04 17:06:06 Office Visit Stephanie Lowe, Adc Surg Spec Procedure [facility] 1.2.840.114 350.1.13.10 4.2.7.2.686 [id number] [facility] 2021-09-04 15:30:00 2021-09-04 15:30:00 [facility] [id number] 2021-09-04 00:00:00 2021-09-04 00:00:00 [facility] 1.2.840.114 350.1.13.10 4.2.7.2.686 [id number] [facility] 2021-09-04 00:00:00 2021-09-04 00:00:00 Orders Only Doctor Unassigned, [place] [facility] 1.2840.114 350.1.13.10 4.2.7.2.686 [id number] [facility] 2021-09-04 00:00:00 2021-09-04 00:00:00 Telephone Stephanie Lowe [facility] 1.2.840.114 350.1.13.10 4.2.7.2.686 [id number] [facility] 2021-08-23 07:09:45 2021-08-23 07:39:28 Office Visit Francisca Tubbs [facility] 1..840.114 350.1.13.10 4.2.7.2.686 [id number] [facility] 2021-08-23 07:00:00 2021-08-23 07:00:00 Outpatient R FRANCISCA TUBBS [facility] [id number] [facility] 2021-07-28 09:00:00 2021-07-28 09:00:00 Outpatient R SESAR HALL [facility] [id number] [facility] 2021-07-27 00:00:00 2021-07-27 00:00:00 Patient Secure Msg Israel brandt Sesar Mora [facility] 1.2840.114 350.1.13.10 4.2.7.2.686 [id number] [facility] 2021-07-17 16:15:00 2021-07-17 16:15:00 Outpatient R STEPHANIE LOWE [facility] [id number] [facility] 2021-07-13 00:00:00 2021-07-13 00:00:00 Telephone Israel brandt Sesar M [facility] 1..114 350.1.13.10 4.2.7.2.686 [id number] [facility] 2020-12-29 15:30:00 2020-12-29 15:30:00 Outpatient [facility] [id number] [facility] 2020-11-24 15:58:15 2020-11-24 16:42:03 Office Visit Mynor [facility] 1..114 350.1.13.10 4.2.7.2.686 [id number] [facility] 2020-11-24 16:00:00 2020-11-24 16:00:00 Outpatient R [facility] [id number] [facility] 2020-11-24 00:00:00 2020-11-24 00:00:00 Orders Only Doctor Unassigned, [place] [facility] 1..114 350.1.13.10 4.2.7.2.686 [id number] [facility] 2020-11-13 00:00:00 2020-11-13 00:00:00 Patient Secure Msg Doctor Unassigned, [place] [facility] 1..114 350.1.13.10 4.2.7.2.686 [id number] [facility] 2020-11-09 08:47:43 2020-11-09 09:02:43 Windows Infrastructure Engineer Visit Lab, Jaquelin Ramos [facility] 1..114 350.1.13.10 4.2.7.2.686 [id number] [facility] 2020-11-09 08:45:00 2020-11-09 08:45:00 Outpatient JAQUELIN HARTLEY [facility] [id number] [facility] 2020-11-04 16:15:00 2020-11-04 23:59:00 Hospital Encounter Arden Chavez [facility] 1.2.840.114 350.1.13.10 4.2.7.2.686 [id number] [facility] 2020-11-04 15:30:35 2020-11-04 17:04:25 Office Visit Arden Chavez [facility] 1.2.840.114 350.1.13.10 4.2.7.2.686 [id number] [facility] 2020-11-04 15:30:00 2020-11-04 15:30:00 Outpatient R ARDEN CHAVEZ [facility] [id number] [facility] 2020-11-03 00:00:00 2020-11-03 00:00:00 Telephone Jaquelin Oleary [facility] 1.20.114 350.1.13.10 4.2.7.2.686 [id number] [facility] 2020-10-31 00:00:00 2020-10-31 00:00:00 Patient Secure Msg Israel onSesar [facility] 1..114 350.1.13.10 4.2.7.2.686 [id number] [facility] 2020-10-27 11:19:01 2020-10-27 11:34:01 Windows Infrastructure Engineer Visit Lab, Randy Alemanisti [facility] 1.2.114 350.1.13.10 4.2.7.2.686 [id number] [facility] 2020-10-27 10:12:01 2020-10-27 11:17:34 Office Visit Jolene Carranza [facility] 1.2.840.114 350.1.13.10 4.2.7.2.686 [id number] [facility] 2020-10-27 10:30:00 2020-10-27 10:30:00 Outpatient JOLENE QUINN [facility] [id number] [facility] 2020-10-27 08:30:00 2020-10-27 08:30:00 [id number] 2020-10-27 00:00:00 2020-10-27 00:00:00 Orders Only Doctor Unassigned, [place] [facility] 1.2.114 350.1.13.10 4.2.7.2.686 [id number] [facility] 2020-10-19 15:37:21 2020-10-19 16:07:21 Office Visit Greg Luong [facility] 1.2.114 350.1.13.10 4.2.7.2.686 [id number] [facility] 2020-10-19 16:00:00 2020-10-19 16:00:00 Outpatient Jenny OKEEFEAGGREG [facility] [id number] [facility] 2020-10-10 00:00:00 2020-10-10 00:00:00 Patient Secure Msg Doctor Unassigned, [place] [facility] 1.2.114 350.1.13.10 4.2.7.2.686 [id number] [facility] 2020-10-10 00:00:00 2020-10-10 00:00:00 Patient Secure Msg Doctor Unassigned, [place] [facility] 1.2840.114 350.1.13.10 4.2.7.2.686 [id number] [facility] 2020-10-07 10:15:00 2020-10-07 23:59:00 Hospital Encounter Odell-Lebr on [facility] 1.2.840.114 350.1.13.10 4.2.7.2.686 [id number] [facility] 2020-10-07 10:47:02 2020-10-07 11:02:02 Windows Infrastructure Engineer Visit Lab, Dain Mirian Omar-Alexbr on [facility] 1.2.840.114 350.1.13.10 4.2.7.2.686 [id number] [facility] 2020-10-07 09:32:35 2020-10-07 10:32:56 Office Visit Odell-[place] on [facility] 1.2.840.114 350.1.13.10 4.2.7.2.686 [id number] [facility] 2020-10-07 09:20:00 2020-10-07 09:20:00 Outpatient R OMAR-ALEXBR RIKKI [facility] [id number] [facility] 2020-10-07 00:00:00 2020-10-07 00:00:00 Telephone Odell-Alexbr on [facility] 1.2.840.114 350.1.13.10 4.2.7.2.686 [id number] [facility] 2020-10-07 00:00:00 2020-10-07 00:00:00 Patient Secure Msg Odell-Lebr on [facility] 1.2.840.114 350.1.13.10 4.2.7.2.686 [id number] [facility] 2020-10-07 00:00:00 2020-10-07 00:00:00 Patient Secure Msg Odell-Lebr on [facility] 1.2.840.114 350.1.13.10 4.2.7.2.686 [id number] [facility] 2020-05-07 06:06:03 2020-05-07 08:24:00 Emergency Gemma Liam [facility] 1.2.840.114 350.1.13.10 4.2.7.2.686 [id number] [facility] 2020-05-07 06:06:03 2020-05-07 08:24:00 Emergency X LIAM MATTSON [facility] ERT [id number] [facility] 2019-10-25 16:00:57 2019-10-25 17:48:00 Emergency X CHACORTA CALDERONRA [facility] ERT [id number] [facility] 2019-06-30 16:00:00 2019-06-30 16:00:00 Outpatient Boris Escalona [facility]W [id number] [facility] 2019-04-22 16:00:00 2019-04-22 16:00:00 Outpatient Domenic Land CHW CHW [id number] [facility]
--- NOTE | 2023-12-27 16:16 | EDPHYS ---
Physician Documentation [facility] Name: Judd Barraza Age: 33 yrs Sex: Male : 1990 Arrival Date: 12/27/2023 Time: 15:13 Bed 13 Private MD: ED Physician Austin Rosales HPI: 12/27 15:39 This 33 yrs old Male presents to ER via Ambulatory with complaints of Skin Problem - ms3 Middle back/hip, Hip Pain, Back Pain. 15:39 33-year-old male with past medical history of stroke and seizure presents to the [facility] emergency department for back abscess and bump on his left hip. Patient states the area on his back has been there for 8 months and has become worse over the last month. Patient states his attempted to pop the area and only blood came out. Patient states his discomfort is a 2/10. Historical: - Allergies: 15:25 No Known Allergies; aa5 - PMHx: 15:25 CVA; Seizure; aa5 - PSHx: 15:25 Craniotomy; aa5 - Immunization history:: Adult Immunizations unknown. - Social history:: Smoking status: Patient reports the use of cigarette tobacco products. ROS: 15:39 Constitutional: Negative for fever, and chills. Neck: Negative for injury, pain, and ms3 swelling, Cardiovascular: Negative for chest pain, and palpitations. Respiratory: Negative for shortness of breath, cough, wheezing, and pleuritic chest pain, Abdomen/GI: Negative for abdominal pain, nausea, vomiting, diarrhea, and constipation, 15:39 All other systems are negative, Exam: 15:39 Constitutional: This is a well developed, well nourished patient who is awake, alert, ms3 and in no acute distress. Head/Face: Normocephalic, atraumatic. Neck: Trachea midline, no cervical lymphadenopathy. Supple, full range of motion without nuchal rigidity, or vertebral point tenderness. No Meningismus. Chest/axilla: Normal chest wall appearance and motion. Nontender with no deformity. Cardiovascular: Regular rate and rhythm with a normal S1 and S2. No gallops, murmurs, or rubs. Normal PMI, no JVD. No pulse deficits. Respiratory: Lungs have equal breath sounds bilaterally, clear to auscultation and percussion. No rales, rhonchi or wheezes noted. No increased work of breathing, no retractions or nasal flaring. 15:39 Skin: abscess, that is moderate sized, of the back, with fluctuance, that is mild, Vital Signs: 15:25 BP 126 / 93; Pulse 85; Resp 16 S; Temp 98(O); Pulse Ox 99% on R/A; Weight 86.18 kg (R); aa5 Height 6 ft. 1 in. (R); 16:29 BP 123 / 79; Pulse 88; Resp 18; Pulse Ox 98% on R/A; me1 15:25 Body Mass Index 25.07 (86.18 kg, 185.42 cm) aa5 Procedures: 15:39 I \T\ D: Incision and drainage was performed for an abscess of the right back Prepped ms3 with alcohol, Anesthetized with 3 ml's 1% Lidocaine. Incised with #11 blade. Drained large amount purulent fluid. Packed with iodoform gauze, Dressing: sterile 4x4 gauze, the patient tolerated the procedure well. MDM: 15:36 Patient medically screened. ms3 15:39 Differential diagnosis: Sebaceous cyst vs abscess vs cellulitis. Data reviewed: vital ms3 signs, nurses notes, and as a result, I will discharge patient. I considered the following discharge prescriptions or medication management in the emergency department Medications were administered in the Emergency Department. See MAR. Counseling: I had a detailed discussion with the patient and/or guardian regarding the historical points, exam findings, and any diagnostic results supporting the discharge/admit diagnosis, the need for outpatient follow up, to return to the emergency department if symptoms worsen or persist or if there are any questions or concerns that arise at home. Special discussion: I discussed with the patient/guardian in detail that at this point there is no indication for admission to the hospital. It is understood, however, that if the symptoms persist or worsen the patient needs to return immediately for re-evaluation. ED course: Incision and drainage performed without complication. Patient to follow-up Dr. Gonzalez in 2 to 3 days for reevaluation. Patient understands and agrees with plan. All questions were answered. Return precautions discussed include worsening symptoms, or any other concerns. 12/27 15:37 Order name: Incision \T\ Drainage Setup; Complete Time: 15:51 ms3 Administered Medications: 16:23 Drug: Lidocaine-Epinephrine Infiltration -1%: (1:100,000) 10 ml 20 ml Infiltration me1 once; to bedside {Note: Administered by Dr Rosales.} Volume: 20 ml; Route: Infiltration; Disposition Summary: 12/27/23 16:15 Discharge Ordered Notes: Location: Home ms3 Condition: Stable ms3 Diagnosis - Cutaneous abscess of back [any part, except buttock] ms3 Followup: ms3 - With: Jovany Gonzalez DO - When: 2 - 3 days - Reason: Recheck today's complaints Discharge Instructions: - Discharge Summary Sheet ms3 - Skin Abscess ms3 - Incision and Drainage ms3 Forms: - Medication Reconciliation Form ms3 - Thank You Letter ms3 - Antibiotic Education ms3 - Prescription Opioid Use ms3 - Patient Portal Instructions ms3 - Leadership Thank You Letter ms3 Prescriptions: - Doxycycline Hyclate 100 mg Oral Tablet - take 1 tablet ORAL route every 12 hours; 20 tablet; Refills: 0, Product ms3 Selection Permitted Signatures: Ese Wiley, RN RN aa5 Austin Rosales DO DO ms3 Savannah Francis, APPLE RN me1 Corrections: (The following items were deleted from the chart) 15:25 15:25 PSHx: open heart SX; aa5 aa5
--- NOTE | 2023-12-27 16:16 | ER ---
Nurse's Notes [facility] Name: Judd Barraza Age: 33 yrs Sex: Male : 1990 Arrival Date: 12/27/2023 Time: 15:13 Bed 13 Private MD: Diagnosis: Cutaneous abscess of back [any part, except buttock] Presentation: 12/27 15:25 Chief complaint: Patient states: "I've had a ball sized knot on my back over the last 8 aa5 months and over the last month it started bothering me". Coronavirus screen: At this time, the client does not indicate any symptoms associated with coronavirus-19. Ebola Screen: Patient denies travel to an Ebola-affected area in the 21 days before illness onset. Initial Sepsis Screen: Does the patient meet any 2 criteria? No. Patient's initial sepsis screen is negative. Does the patient have a suspected source of infection? No. Patient's initial sepsis screen is negative. Risk Assessment: Do you want to hurt yourself or someone else? Patient reports no desire to harm self or others. Onset of symptoms was 2022. 15:25 Acuity: JOHNATHAN 3 aa5 15:25 Method Of Arrival: Ambulatory aa5 Historical: - Allergies: 15:25 No Known Allergies; aa5 - PMHx: 15:25 CVA; Seizure; aa5 - PSHx: 15:25 Craniotomy; aa5 - Immunization history:: Adult Immunizations unknown. - Social history:: Smoking status: Patient reports the use of cigarette tobacco products. Screenin:30 [facility] ED Fall Risk Assessment (Adult) History of falling in the last 3 months, me1 including since admission No falls in past 3 months (0 pts) Confusion or Disorientation No (0 pts) Intoxicated or Sedated No (0 pts) Impaired Gait No (0 pts) Mobility Assist Device Used No (0 pt) Altered Elimination No (0 pt) Score/Fall Risk Level 0 - 2 = Low Risk Oriented to surroundings, Provided non-skid footwear, Hourly rounding (assess needs \\T\\ fall precautionary measures) done. Abuse screen: Denies threats or abuse. Nutritional screening: No deficits noted. Tuberculosis screening: No symptoms or risk factors identified. Assessment: 15:30 General: Appears comfortable, well groomed, well developed, well nourished, Behavior is me1 calm, cooperative, appropriate for age, Reports "I've had a ball sized knot on my back over the last 8 months and over the last month it started bothering me". Pain: Denies pain. Neuro: Level of Consciousness is awake, alert, obeys commands, Oriented to person, place, time, situation, Appropriate for age. Cardiovascular: Capillary refill < 3 seconds Patient's skin is warm and dry. Respiratory: Airway is patent Trachea midline Respiratory effort is even, unlabored, Respiratory pattern is regular, symmetrical. Derm: round, red area to midback. Vital Signs: 15:25 BP 126 / 93; Pulse 85; Resp 16 S; Temp 98(O); Pulse Ox 99% on R/A; Weight 86.18 kg (R); aa5 Height 6 ft. 1 in. (R); 16:29 BP 123 / 79; Pulse 88; Resp 18; Pulse Ox 98% on R/A; me1 15:25 Body Mass Index 25.07 (86.18 kg, 185.42 cm) aa5 ED Course: 15:16 Patient arrived in ED. im 15:23 Austin Rosales DO is Attending Physician. ms3 15:27 Triage completed. aa5 15:30 Patient has correct armband on for positive identification. Bed in low position. Call me1 light in reach. Side rails up X 1. Provided Education on: POC. Verbalized understanding. . 15:30 No provider procedures requiring assistance completed. Patient did not have IV access me1 during this emergency room visit. 15:45 Savannah Francis, APPLE is Primary Nurse. me1 16:15 Jovany Gonzalez DO is Referral Physician. ms3 16:30 Arm band placed on Patient placed in waiting room. me1 Administered Medications: 16:23 Drug: Lidocaine-Epinephrine Infiltration -1%: (1:100,000) 10 ml 20 ml Infiltration me1 once; to bedside {Note: Administered by Dr Rosales.} Volume: 20 ml; Route: Infiltration; Medication: 15:30 VIS not applicable for this client. me1 Outcome: 16:15 Discharge ordered by . ms3 16:30 Discharged to home ambulatory, me1 16:30 Condition: stable 16:30 Discharge instructions given to patient, Instructed on discharge instructions, follow up and referral plans. medication usage, Demonstrated understanding of instructions, follow-up care, medications, Prescriptions given X 1, 16:30 Patient left the ED. me1 Signatures: Ese Wiley, RN RN aa5 Austin Rosales DO DO ms3 Veronique Frias Michelle, RN RN me1 Corrections: (The following items were deleted from the chart) 15:25 15:25 PSHx: open heart SX; 5 5 16:27 15:25 Chief complaint: Patient states: "I've had a ball sized knot on my back over the me1 last 8 months and over the last month it started bothering me" aa5
[2023-12-27 16:42] VITALS: BP 123/79; TEMP 98; O2SAT 98
== END ==
LOC: ER 15:13
PROC: 0H96XZZ Drainage of Back Skin, External Approach (ICD-10-PCS; principal; 2023-12-27)
DX: L02.212 Cutaneous abscess of back [any part, except buttock and flank] (principal)
CPT/HCPCS: J2001

== ENCOUNTER 2024-07-23 20:58 | Emergency (ER) | payer OTHER ==
--- OUTSIDE RECORDS SUMMARY | 2024-07-23 21:01 | XMS REPORT | Continuity of Care Document ---
Author Name Unknown Address [address] [facility] [address] [place] [address] [facility] Address [address] [facility] [address] [place] [address] Care Team Providers Care Manager Managed Care Name Role Phone Sesar Haynes MD Primary Care Physician Unavailable Amanda Matta Attending Clinician [phone] AMANDA ROWLAND Attending Clinician Unavailable Doctor Unassigned, [place] Attending Clinician U Stephanie Washington MD Attending Clinician [phone] RICH GARZA Attending Clinician Unavailable STEPHANIE LOWE Attending Clinician Unavailable LORY LEGER Attending Clinician Unavailable SESAR HAYNES Attending Clinician Unamary kay alberts , Adc Surg Spec Procedure Attending Clinician Unavailable Francisca Gtz Attending Clinician [phone] FRANCISCA TUBBS Attending Clinician Unavailable Sesar Haynes MD Attending Clinician [phone] Lab, Dain Cbc Attending Clinician Unavailable Jaquelin Moreno Attending Clinician [phone] JAQUELIN OLEARY Attending Clinician UnavailArden Smith MD Attending Clinician [phone] ARDEN CHAVEZ Attending Clinician Unavailable Jolene Dodd Attending Clinician JOLENE CARRANZA Attending Clinician UnavailGreg Persaud Attending Clinician [phone] GREG LUONG Attending Clinician Unavail Liam Bazzi MD Attending Clinician LIAM MATTSON Attending Clinician Unavailable JULIO C CALDERON Attending Clinician Unavailab Domenic Marte Attending Clinician Unavailable LIAM MATTSON Admitting Clinician Unavailable JULIO C CALDERON Admitting Clinician Unavailab isbell Payers Payer Name Policy Type Policy Number Effective Date Expirati on Date Source HIM BC BLUE ADVANTAGE O [id number] 2020 00:00:00 Problems Condition Name Condition Details Condition Category Status Onset Date Resolution Date Last Treatment Date Treating Clinician Comments Source Injury by nail, initial encounter Injury by nail, initial encounter Disease Active 04-10 00:00: 00 [facility] Left foot pain Left foot pain Disease Active 04-10 00:00: 00 [facility] Allergies, Adverse Reactions, Alerts Allergy Name Allergy Type Status Severity Reaction(s) Onset Date Inactive Date Treating Clinician Comments Source No Known Allergie s DA Active U 05-30 00:00: 00 G[facility] NO KNOWN ALLERGIE S Drug Class Active [facility] Social History Social Habit Start Date Stop Date Quantity Comments Source History SDOH Alcohol Frequency [facility] History SDOH Alcohol Std Drinks [facility] History SDOH Alcohol Binge [facility] to SARS-CoV-2 (event) 2022-03-31 00:00:00 2022-04-10 09:19:00 Not sure [facility] Cigarette pack-years 2021-08-23 00:00:00 2021-08-23 00:00:00 [facility] History of Social function 2021-08-23 00:00:00 2021-08-23 00:00:00 [facility] History of tobacco use 2021-08-02 00:00:00 Cigarette Smoker [facility] Alcohol intake 2020-11-04 00:00:00 2020-11-04 00:00:00 Current drinker of alcohol (finding) [facility] Cigarettes smoked current (pack per day) - Reported 2018-04-07 00:00:00 2018-04-07 00:00:00 [facility] Tobacco use and exposure 2018-04-07 00:00:00 2018-04-07 00:00:00 Smokeless tobacco non-user [facility] Alcohol Comment 2018-04-07 00:00:00 2018-04-07 00:00:00 social [facility] Sex Assigned At 1990 00:00:00 1990 00:00:00 [facility] Smoking Status Start Date Stop Date Source Ex-smoker 2021-08-23 00:00:00 2021-08-23 00[facility]00[facility] Sm[facility] tobacco daily 2018-04-07 00:00:00 [facility] Medications Ordered Medication Name Filled Medication Name Start Date Stop Date Current Medication? Ordering Clinician Indication Dosage Frequency Signature (SIG) Comments Components Source ibuprofen 600 mg tablet 04-10 00:00: 00 04-25 04:59 :00 No [id number] 600mg Take 1 tablet by mouth every 6 (six) hours as needed for Temp > 38.5 C for up to 14 days. [facility] benzonatate (TESSALON PERLES) 100 mg capsule 08-23 00:00: 00 Yes [id number] 100mg Take 1 capsule by mouth 3 (three) times daily as needed for Cough. [facility] acetaminoph en-codeine (TYLENOL-CO DEINE #3) 300-30 mg tablet 2018-11 00:00: 00 08-23 00:00 :00 No [id number] 1{tbl} Take 1 tablet by mouth every 4 (four) hours as needed for Pain (scale 1-3). [facility] Immunizations Ordered Immunization Name Filled Immunization Name Date Status Comments Source TDAP 2020-10-07 00:00:00 Completed [facility] TDAP 2020-10-07 00:00:00 Completed [facility] TDAP Unknown Completed [facility] TDAP Unknown Completed [facility] Vital Signs Vital Name Observation Time Observation Value Comments S ava Systolic blood pressure 2022-04-10 14:36:00 123 mm[Hg] [facility] Diastolic blood pressure 2022-04-10 14:36:00 78 mm[Hg] [facility] Heart rate 2022-04-10 14:36:00 84 /min [facility] Body temperature 2022-04-10 14:36:00 36.39 Michaela [facility] Body height 2022-04-10 14:36:00 185.4 cm [facility] Body weight 2022-04-10 14:36:00 81.602 kg [facility] BMI 2022-04-10 14:36:00 23.73 kg/m2 [facility] Oxygen saturation in Arterial blood by Pulse oximetry 2022-04-10 14:36:00 98 /min [facility] Encounters Start Date/Time End Date/Time Encounter Type Admission Type Attending Clinicians Care Facility Care Department Encounter ID Source 2022-08-23 13:19:32 Outpatient CHW [facility]W [id number] [facility] 2022-04-10 09:00:00 2022-04-10 09:54:24 Office Visit Amanda Rowland [facility] 1..840.114 350.1.13.10 4.2.7.2.686 [id number] [facility] 2022-04-10 09:00:00 2022-04-10 09:54:24 Outpatient AMANDA JACQUES [facility] [id number] [facility] 2022-04-10 00:00:00 2022-04-10 00:00:00 Outpatient AMANDA JACQUES [facility] [id number] [facility] 2022-04-10 00:00:00 2022-04-10 00:00:00 Orders Only Doctor Unassigned, [place] [facility] 1..840.114 350.1.13.10 4.2.7.2.686 [id number] [facility] 2022-04-09 00:00:00 2022-04-09 00:00:00 Letter (Out) Amanda Rowland [facility] 1.2.840.114 350.1.13.10 4.2.7.2.686 [id number] [facility] 2021-12-15 00:00:00 2021-12-15 00:00:00 Orders Only Doctor Unassigned, [place] [facility] 1.84.114 350.1.13.10 4.2.7.2.686 [id number] [facility] 2021-12-12 00:00:00 2021-12-12 00:00:00 [facility] 1.840.114 350.1.13.10 4.2.7.2.686 [id number] [facility] 2021-12-07 00:00:00 2021-12-07 00:00:00 Patient Secure Msg Mynor [facility] 1..84.114 350.1.13.10 4.2.7.2.686 [id number] [facility] 2021-09-14 18:00:00 2021-09-14 18:00:00 Outpatient R RICH GARZA [facility] [id number] [facility] 2021-09-14 00:00:00 2021-09-14 00:00:00 Telephone Mynor [facility] 1.2.840.114 350.1.13.10 4.2.7.2.686 [id number] [facility] 2021-09-11 11:30:00 2021-09-11 11:30:00 Outpatient R MYNOR [facility] [id number] [facility] 2021-09-11 10:31:19 2021-09-11 11:03:41 Office Visit Mynor [facility] 1.2.840.114 350.1.13.10 4.2.7.2.686 [id number] [facility] 2021-09-11 09:30:00 2021-09-11 09:30:00 Outpatient DEMIAN JOA [facility] [id number] [facility] 2021-09-11 00:00:00 2021-09-11 00:00:00 Patient [facility] 1.2.840.114 350.1.13.10 4.2.7.2.686 [id number] [facility] 2021-09-11 00:00:00 2021-09-11 00:00:00 [facility] 1.2.840.114 350.1.13.10 4.2.7.2.686 [id number] [facility] 2021-09-08 10:40:00 2021-09-08 10:40:00 Outpatient SESAR MORRISON [facility] [id number] [facility] 2021-09-07 09:29:28 2021-09-07 09:54:55 Office Visit Mynor [facility] 1.2.840.114 350.1.13.10 4.2.7.2.686 [id number] [facility] 2021-09-07 08:00:00 2021-09-07 08:00:00 Outpatient R HAFSACorey [facility] [id number] [facility] 2021-09-06 00:00:00 2021-09-06 00:00:00 Telephone Stephanie Lowe [facility] Building 1.2840.114 350.1.13.10 4.2.7.2.686 [id number] [facility] 2021-09-04 15:00:23 2021-09-04 17:06:06 Office Visit Stephanie Lowe , Adc Surg Spec Procedure [facility] 1.2840.114 350.1.13.10 4.2.7.2.686 [id number] [facility] 2021-09-04 15:30:00 2021-09-04 15:30:00 Outpatient R STEPHANIE LOWE [facility] [id number] [facility] 2021-09-04 00:00:00 2021-09-04 00:00:00 [facility] 1.284.114 350.1.13.10 4.2.7.2.686 [id number] [facility] 2021-09-04 00:00:00 2021-09-04 00:00:00 Orders Only Doctor Unassigned, [place] [facility] 1.2840.114 350.1.13.10 4.2.7.2.686 [id number] [facility] 2021-09-04 00:00:00 2021-09-04 00:00:00 Telephone Stephanie Lowe [facility] 1.284.114 350.1.13.10 4.2.7.2.686 [id number] [facility] 2021-08-23 07:09:45 2021-08-23 07:39:28 Office Visit Francisca Tubbs [facility] 1.284.114 350.1.13.10 4.2.7.2.686 [id number] [facility] 2021-08-23 07:00:00 2021-08-23 07:00:00 Outpatient R FRANCISCA TUBBS [facility] [id number] [facility] 2021-07-28 09:00:00 2021-07-28 09:00:00 [facility] [facility] [id number] [facility] 2021-07-27 00:00:00 2021-07-27 00:00:00 Patient Secure Msg [place] Jose R [facility] 1..840.114 350.1.13.10 4.2.7.2.686 [id number] [facility] 2021-07-17 16:15:00 2021-07-17 16:15:00 Outpatient R STEPHANIE LOWE [facility] [id number] [facility] 2021-07-13 00:00:00 2021-07-13 00:00:00 Telephone Israel Jose R brandtFormerly [facility] 1..840.114 350.1.13.10 4.2.7.2.686 [id number] [facility] 2020-12-29 15:30:00 2020-12-29 15:30:00 [id number] 2020-11-24 15:58:15 2020-11-24 16:42:03 [facility] 1..840.114 350.1.13.10 4.2.7.2.686 [id number] [facility] 2020-11-24 16:00:00 2020-11-24 16:00:00 [facility] [id number] [facility] 2020-11-24 00:00:00 2020-11-24 00:00:00 Orders Only Doctor Unassigned, [place] [facility] 1.114 350.1.13.10 4.2.7.2.686 [id number] [facility] 2020-11-13 00:00:00 2020-11-13 00:00:00 Patient Secure Msg Doctor Unassigned, [place] [facility] 1.114 350.1.13.10 4.2.7.2.686 [id number] [facility] 2020-11-09 08:47:43 2020-11-09 09:02:43 Hemotherapist Visit Lab, Dain Jaquelin Quiroz [facility] 1.114 350.1.13.10 4.2.7.2.686 [id number] [facility] 2020-11-09 08:45:00 2020-11-09 08:45:00 Outpatient R JAQUELIN OLEARY [facility] [id number] [facility] 2020-11-04 16:15:00 2020-11-04 23:59:00 Hospital Encounter Arden Chavez [facility] 1..114 350.1.13.10 4.2.7.2.686 [id number] [facility] 2020-11-04 15:30:35 2020-11-04 17:04:25 Office Visit Arden Chavez [facility] 1..114 350.1.13.10 4.2.7.2.686 [id number] [facility] 2020-11-04 15:30:00 2020-11-04 15:30:00 Outpatient R ARDEN CHAVEZ [facility] [id number] [facility] 2020-11-03 00:00:00 2020-11-03 00:00:00 Telephone Jaqeulin Oleary [facility] 1.2.840.114 350.1.13.10 4.2.7.2.686 [id number] [facility] 2020-10-31 00:00:00 2020-10-31 00:00:00 Patient Secure Msg [place] Sesar brandt [facility] 1.2.840.114 350.1.13.10 4.2.7.2.686 [id number] [facility] 2020-10-27 11:19:01 2020-10-27 11:34:01 Hemotherapist Visit Lab, Dain [facility] 1.2.840.114 350.1.13.10 4.2.7.2.686 [id number] [facility] 2020-10-27 10:12:01 2020-10-27 11:17:34 Office Visit Dillon Jolene [facility] 1.2.840.114 350.1.13.10 4.2.7.2.686 [id number] [facility] 2020-10-27 10:30:00 2020-10-27 10:30:00 Outpatient JOLENE QUINN [facility] [id number] [facility] 2020-10-27 08:30:00 2020-10-27 08:30:00 [facility] [id number] 2020-10-27 00:00:00 2020-10-27 00:00:00 Orders Only Doctor Unassigned, [place] [facility] 1.2.840.114 350.1.13.10 4.2.7.2.686 [id number] [facility] 2020-10-19 15:37:21 2020-10-19 16:07:21 Office Visit Greg Luong Alicja [facility] 1.2.840.114 350.1.13.10 4.2.7.2.686 [id number] [facility] 2020-10-19 16:00:00 2020-10-19 16:00:00 Outpatient R GREG LUONG [facility] [id number] [facility] 2020-10-10 00:00:00 2020-10-10 00:00:00 Patient Secure Msg Doctor Unassigned, [place] [facility] 1.2.840.114 350.1.13.10 4.2.7.2.686 [id number] [facility] 2020-10-10 00:00:00 2020-10-10 00:00:00 Patient Secure Msg Doctor Unassigned, [place] [facility] 1.2.840.114 350.1.13.10 4.2.7.2.686 [id number] [facility] 2020-10-07 10:15:00 2020-10-07 23:59:00 Hospital Encounter [place] Sesar brandt [facility] 1.2.840.114 350.1.13.10 4.2.7.2.686 [id number] [facility] 2020-10-07 10:47:02 2020-10-07 11:02:02 Hemotherapist Visit Lab, Dain Cbc [place] Jose R brandtFormerly [facility] 1.2.840.114 350.1.13.10 4.2.7.2.686 [id number] [facility] 2020-10-07 09:32:35 2020-10-07 10:32:56 Office Visit Israel Jose R brandtFormerly [facility] 1.2.840.114 350.1.13.10 4.2.7.2.686 [id number] [facility] 2020-10-07 09:20:00 2020-10-07 09:20:00 Outpatient R SESAR HALL [facility] [id number] [facility] 2020-10-07 00:00:00 2020-10-07 00:00:00 Telephone [place] on [facility] 1.2.840.114 350.1.13.10 4.2.7.2.686 [id number] [facility] 2020-10-07 00:00:00 2020-10-07 00:00:00 Patient Secure Msg [place] on [facility] 1.2.840.114 350.1.13.10 4.2.7.2.686 [id number] [facility] 2020-10-07 00:00:00 2020-10-07 00:00:00 Patient Secure Msg [place] on [facility] 1.2.840.114 350.1.13.10 4.2.7.2.686 [id number] [facility] 2020-05-07 06:06:03 2020-05-07 08:24:00 Emergency Liam Mattson [facility] 1.2.840.114 350.1.13.10 4.2.7.2.686 [id number] [facility] 2020-05-07 06:06:03 2020-05-07 08:24:00 Emergency X LIAM MATTSON [facility] E[facility] [id number] [facility] 2019-10-25 16:00:57 2019-10-25 17:48:00 Emergency X JULIO C CALDERON [facility] E[facility] [id number] [facility] 2019-06-30 16:00:00 2019-06-30 16:00:00 Outpatient Boris Escalona CHW [id number] [facility] 2019-04-22 16:00:00 2019-04-22 16:00:00 Outpatient Domenic Ladn CHW [id number] [facility]
--- NOTE | 2024-07-23 22:15 | RAD REPORT ---
EXAM DESCRIPTION: Kami Hernandes (2 Views)07/23/2024 9:47 pm CLINICAL HISTORY: Chest pain COMPARISON: None FINDINGS: The lungs appear clear of acute infiltrate. The heart is normal size IMPRESSION: No acute abnormalities displayed
--- NOTE | 2024-07-23 22:56 | EDPHYS ---
Physician Documentation [facility] Name: Judd Barraza Age: 33 yrs Sex: Male : 1990 Arrival Date: 07/23/2024 Time: 20:58 Bed 11 Private MD: ED Physician Fredi Eden HPI: 07/23 21:21 This 33 yrs old Male presents to ER via Ambulatory with complaints of Fever. sp4 21:21 33-year-old male presents with complaint of acute onset of fever, cough, shortness of sp4 breath, chest discomfort and feeling unwell. . Historical: - Allergies: 21:06 No Known Allergies; tm6 - Home Meds: 21:06 None [Active]; tm6 - PMHx: 21:06 CVA; Seizure; tm6 - PSHx: 21:06 Craniotomy; tm6 - Immunization history:: Client reports having NOT received the Covid vaccine. - Infectious Disease History:: Denies. - Social history:: Smoking status: Patient reports the use of cigarette tobacco products, smokes one pack cigarettes per day. - Family history:: not pertinent. ROS: 21:21 Constitutional: Positive fever, positive chills, positive fatigue, positive cough, sp4 positive chest discomfort, overall feeling unwell 21:21 All other systems are negative, Exam: 21:21 Constitutional: This is a well developed, well nourished patient who is awake, alert, sp4 and in no acute distress. Head/Face: Normocephalic, atraumatic. Eyes: Pupils equal round and reactive to light, extra-ocular motions intact. Lids and lashes normal. Conjunctiva and sclera are not injected. Cornea within normal limits. Periorbital areas with no swelling, redness, or edema. ENT: Nares patent. No nasal discharge, no septal abnormalities noted. Tympanic membranes are normal and external auditory canals are clear. Oropharynx with no redness, swelling, or masses, exudates, or evidence of obstruction, uvula midline. Mucous membranes moist. Neck: Trachea midline, no thyromegaly or masses palpated, and no cervical lymphadenopathy. Supple, full range of motion without nuchal rigidity, or vertebral point tenderness. Chest/axilla: Normal chest wall appearance and motion. Nontender with no deformity. No lesions are appreciated. Cardiovascular: Regular rate and rhythm with a normal S1 and S2. No gallops, murmurs, or rubs. Normal PMI, no JVD. No pulse deficits. Respiratory: Lungs have equal breath sounds bilaterally, clear to auscultation and percussion. No rales, rhonchi or wheezes noted. No increased work of breathing, no retractions or nasal flaring. Abdomen/GI: Soft, with normal bowel sounds. No distension or tympany. No guarding or rebound. No evidence of tenderness throughout. Back: No spinal tenderness. No costovertebral tenderness. Skin: Warm, dry with normal turgor. Normal color with no rashes, no lesions, and no evidence of cellulitis. MS/ Extremity: Pulses equal, no cyanosis. Neurovascular intact. Full, normal range of motion. Neuro: Awake and alert, GCS 15, oriented to person, place, time, and situation. Cranial nerves II-XII grossly intact. Motor strength 5/5 in all extremities. Sensory grossly intact. Psych: Awake, alert, with orientation to person, place and time. Behavior, mood, and affect are within normal limits Vital Signs: 21:05 BP 120 / 77; Pulse 108; Resp 16; Temp 98.8(O); Pulse Ox 97% on R/A; Weight 83.91 kg; tm6 Height 6 ft. 1 in. ; Pain 6/10; 23:10 BP 115 / 70; Pulse 85; Resp 18; Temp 98.4(O); Pulse Ox 100% on R/A; tl4 21:05 Body Mass Index 24.41 (83.91 kg, 185.42 cm) tm6 21:05 Pain Scale: Adult tm6 Zenaida Coma Score: 21:21 Eye Response: spontaneous(4). Motor Response: obeys commands(6). Verbal Response: sp4 oriented(5). Total: 15. MDM: 21:14 Patient medically screened. sp4 07/24 02:34 Differential diagnosis: viral Infection, bacterial infection, bronchitis, pneumonia. sp4 Data reviewed: vital signs, nurses notes, radiologic studies, plain films. ED course: EXAM DESCRIPTION: Kami Hernandes (2 Views)07/23/2024 9:47 pm CLINICAL HISTORY: Chest pain COMPARISON: None FINDINGS: The lungs appear clear of acute infiltrate. The heart is normal size IMPRESSION: No acute abnormalities displayed. 07/23 21:20 Order name: Chest Pa And Lat (2 Views) XRAY sp4 Administered Medications: 07/23 23:03 Drug: Dextromethorphan-Guaifenesin PO Liquid 10 mg-100 mg/5 mL 10 ml PO once Route: PO; tl4 23:11 Follow up: Response: No adverse reaction; Medication administered at discharge. tl4 23:08 CANCELLED (Patient Refused): ondansetron 4 mg IVP once; over 2 minutes tl4 23:09 CANCELLED (Patient Refused): [id number] mg IVP once tl4 23:09 CANCELLED (Patient Refused): [id number] mg PO once tl4 23:09 CANCELLED (Patient Refused): ns 0.9% 1000 ml IV at 1 bolus Per protocol; 1000 mL bolus tl4 23:09 CANCELLED (Patient Refused): ns 0.9% 1000 ml IV at 125 ml/hr continuous tl4 Disposition Summary: 07/23/24 22:56 Discharge Ordered Notes: Location: Home sp4 Problem: new sp4 Symptoms: have improved sp4 Condition: Stable sp4 Diagnosis - Acute bronchitis, unspecified sp4 Followup: sp4 - With: Private Physician - When: 7 - 10 days - Reason: Recheck today's complaints Followup: sp4 - With: Solis Tracey DO - When: 7 - 10 days - Reason: Recheck today's complaints Discharge Instructions: - Discharge Summary Sheet sp4 - Acute Bronchitis, Adult sp4 Forms: - Patient Portal Instructions sp4 Prescriptions: - dextromethorphan-guaifenesin 60-1,200 mg Oral Tablet, Extended Release 12 hr - take 1 tablet ORAL route every 12 hours PRN cough; 40 tablet; Refills: 0, sp4 Product Selection Permitted - Ibuprofen 800 mg Oral Tablet - take 1 tablet ORAL route every 8 hours As needed take with food; 30 tablet; sp4 Refills: 0, Product Selection Permitted - Zithromax Z-Paulino 250 mg Oral Tablet - take 1 tablet ORAL route as directed for 5 days Day 1 - take two (2) tablets sp4 one time. Day 2, 3, 4 , 5 take one (1) tablet once daily.; 6 tablet; Refills: 0, Product Selection Permitted - benzonatate 200 mg Oral capsule - take 1 capsule ORAL route 3 times per day as needed; 30 capsule; Refills: 0, sp4 Product Selection Permitted Signatures: Dispatcher [employer] EDMS Fredi Eden MD MD sp4 Rodolfo Rosales RN RN tm6 Eber Frias RN RN tl4 Corrections: (The following items were deleted from the chart) 21:20 21:20 CBC+H.LAB.BRZ ordered. EDMS EDMS 21:20 21:20 COMPREHENSIVE METABOLIC PANEL+C.LAB.BRZ ordered. EDMS EDMS 21:20 21:20 LIPASE+C.LAB.BRZ ordered. EDMS EDMS 21:20 21:20 Urinalysis+U.LAB.BRZ ordered. EDMS EDMS 23: 21:20 Ondansetron IVP 4 mg IVP once; over 2 minutes ordered. sp4 tl4 23: 21:20 Labs collected and sent ordered. sp4 tl4 : 21:20 Ketorolac IVP 30 mg IVP once ordered. sp4 tl4 : 21:20 Acetaminophen PO 1000 mg PO once ordered. sp4 tl4 23: 21:20 NS 0.9% IV 1000 ml IV at 1 bolus Per protocol; 1000 mL bolus ordered. sp4 tl4 : 21:20 NS 0.9% IV 1000 ml IV at 125 ml/hr continuous ordered. sp4 tl4 23: 21:20 IV Saline Lock ordered. sp4 tl4
--- NOTE | 2024-07-23 22:56 | ER ---
Nurse's Notes [facility] Name: Judd Barraza Age: 33 yrs Sex: Male : 1990 Arrival Date: 07/23/2024 Time: 20:58 Bed 11 Private MD: Diagnosis: Acute bronchitis, unspecified Presentation: 07/23 21:05 Chief complaint: Patient states: body aches and fever that began this morning. tm6 Coronavirus screen: Client denies travel out of the [place] in the last 14 days. Ebola Screen: Patient denies exposure to infectious person. Patient denies travel to an Ebola-affected area in the 21 days before illness onset. Initial Sepsis Screen: Does the patient meet any 2 criteria? No. Patient's initial sepsis screen is negative. Does the patient have a suspected source of infection? No. Patient's initial sepsis screen is negative. Risk Assessment: Do you want to hurt yourself or someone else? Patient reports no desire to harm self or others. Onset of symptoms was July 23, 2024. 21:05 Method Of Arrival: Ambulatory tm6 21:05 Acuity: JOHNATHAN 4 tm6 Historical: - Allergies: 21:06 No Known Allergies; tm6 - Home Meds: 21:06 None [Active]; tm6 - PMHx: 21:06 CVA; Seizure; tm6 - PSHx: 21:06 Craniotomy; tm6 - Immunization history:: Client reports having NOT received the Covid vaccine. - Infectious Disease History:: Denies. - Social history:: Smoking status: Patient reports the use of cigarette tobacco products, smokes one pack cigarettes per day. - Family history:: not pertinent. Screenin:37 [facility] ED Fall Risk Assessment (Adult) History of falling in the last 3 months, tl4 including since admission No falls in past 3 months (0 pts) Confusion or Disorientation No (0 pts) Intoxicated or Sedated No (0 pts) Impaired Gait No (0 pts) Mobility Assist Device Used No (0 pt) Altered Elimination No (0 pt) Score/Fall Risk Level 0 - 2 = Low Risk Oriented to surroundings, Maintained a safe environment, Educated pt \T\ family on fall prevention, incl call for assistance when getting out of bed, Assessed \T\ reinforced patient's understanding of fall precautions. Abuse screen: Denies threats or abuse. Denies injuries from another. Nutritional screening: No deficits noted. Tuberculosis screening: No symptoms or risk factors identified. Assessment: 21:36 General: Appears in no apparent distress. Behavior is calm, cooperative. Pain: Denies tl4 pain. Neuro: Level of Consciousness is awake, alert, obeys commands, Oriented to person, place, time, situation, Moves all extremities. Full function Speech is normal. Cardiovascular: Capillary refill < 3 seconds Patient's skin is warm and dry. Respiratory: Airway is patent Respiratory effort is even, unlabored, Respiratory pattern is regular, symmetrical, Breath sounds are clear bilaterally. Respiratory: Reports cough that is non-productive. GI: No signs and/or symptoms were reported involving the gastrointestinal system. : No signs and/or symptoms were reported regarding the genitourinary system. EENT: Reports nasal congestion. Derm: No signs and/or symptoms reported regarding the dermatologic system. Musculoskeletal: No signs and/or symptoms reported regarding the musculoskeletal system. 21:38 Reassessment: All orders on hold. Pt states he feels much better since he got here. Dr amarilys Eden to bedside. Pt agrees to chest xray. Will continue to monitor. Vital Signs: 21:05 BP 120 / 77; Pulse 108; Resp 16; Temp 98.8(O); Pulse Ox 97% on R/A; Weight 83.91 kg; tm6 Height 6 ft. 1 in. ; Pain 6/10; 23:10 BP 115 / 70; Pulse 85; Resp 18; Temp 98.4(O); Pulse Ox 100% on R/A; tl4 21:05 Body Mass Index 24.41 (83.91 kg, 185.42 cm) tm6 21:05 Pain Scale: Adult tm6 [place] Coma Score: 21:21 Eye Response: spontaneous(4). Motor Response: obeys commands(6). Verbal Response: sp4 oriented(5). Total: 15. ED Course: 21:00 Patient arrived in ED. jj6 21:00 Fredi Eden MD is Attending Physician. sp4 21:06 Triage completed. tm6 21:06 Arm band placed on right wrist. tm6 21:38 Patient has correct armband on for positive identification. Bed in low position. Call tl4 light in reach. Side rails up X 1. Provided Education on: ed process, call sims. Door closed. Noise minimized. Lights dimmed. Moved to private room. 21:38 No provider procedures requiring assistance completed. Patient did not have IV access tl4 during this emergency room visit. 21:49 Chest Pa And Lat (2 Views) XRAY In Process Unspecified. EDMS 22:16 Eber Frias, RN is Primary Nurse. tl4 22:55 Solis Tracey DO is Referral Physician. sp4 Administered Medications: 23:03 Drug: Dextromethorphan-Guaifenesin PO Liquid 10 mg-100 mg/5 mL 10 ml PO once Route: PO; tl4 23:11 Follow up: Response: No adverse reaction; Medication administered at discharge. tl4 23:08 CANCELLED (Patient Refused): ondansetron 4 mg IVP once; over 2 minutes tl4 23:09 CANCELLED (Patient Refused): [id number] mg IVP once tl4 23:09 CANCELLED (Patient Refused): [id number] mg PO once tl4 23:09 CANCELLED (Patient Refused): ns 0.9% 1000 ml IV at 1 bolus Per protocol; 1000 mL bolus tl4 23:09 CANCELLED (Patient Refused): ns 0.9% 1000 ml IV at 125 ml/hr continuous tl4 Medication: 21:37 VIS not applicable for this client. tl4 Outcome: 22:56 Discharge ordered by . sp4 23:11 Discharged to home ambulatory, tl4 23:11 Condition: stable 23:11 Discharge instructions given to patient, Instructed on discharge instructions, follow up and referral plans. medication usage, Demonstrated understanding of instructions, follow-up care, medications, Prescriptions given X 4, 23:11 Patient left the ED. tl4 Signatures: Dispatcher [employer] EDMS Liv Weems [email or web address] Fredi Eden MD MD sp4 Rodolfo Rosales RN RN tm6 Eber Frias RN RN tl4
[2024-07-23] MEDS ORDERED: GUAIFENESIN/DM 5 ML UCUP ONE (23:02)
[2024-07-23 23:18] VITALS: BP 115/70; TEMP 98.4; O2SAT 100
== END 2024-07-23 23:11 | disposition home or self-care (01) ==
LOC: ER 20:58
DX: J20.9 Acute bronchitis, unspecified (principal); F17.210 Nicotine dependence, cigarettes, uncomplicated
CPT/HCPCS: 71046; 99283